=== PATIENT | male | born 1980 | race Caucasian/White ===

== ENCOUNTER 2022-06-19 06:12 | Emergency (ER) | payer OTHER ==
[~2022-06-19] VITALS: Ht 188 cm; Wt 115.7 kg
== END 2022-06-19 08:22 | disposition home or self-care (01) ==
LOC: ER 06:12
DX: S91.322A Laceration with foreign body, left foot, initial encounter (principal); W25.XXXA Contact with sharp glass, initial encounter
CPT/HCPCS: 73620; A9270